=== PATIENT | male | born 1995 | race Caucasian/White ===

== ENCOUNTER 2016-08-21 13:49 | Emergency (ER) | payer SELFPAY ==
[~2016-08-21] VITALS: Ht 172.7 cm; Wt 113.4 kg
[2016-08-21 14:07] VITALS: BP 159/92
== END 2016-08-21 14:33 | disposition admitted as inpatient to this hospital (09) ==
LOC: ERH 13:49
DX: R10.9 Unspecified abdominal pain (principal)